=== PATIENT | male | born 1980 | race African-American/Black ===

== ENCOUNTER 2025-03-06 23:32 | Emergency (ER) | payer OTHER, SELFPAY ==
[2025-03-06 23:39] VITALS: BP 133/84; PULSE 76; TEMP 36.9; O2SAT 100; BMI 22.5
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
== END 2025-03-07 00:29 | disposition home or self-care (01) ==
PROVIDERS: Emergency Provider Emergency Medicine
DX: S92.342A Displaced fracture of fourth metatarsal bone, left foot, initial encounter for closed fracture (principal); V09.20XA Pedestrian injured in traffic accident involving unspecified motor vehicles, initial encounter
CPT/HCPCS: 73630; 99283